=== PATIENT | male | born 1970 | race Caucasian/White ===

== ENCOUNTER 2016-03-17 18:26 | Observation (INO) | payer SELFPAY ==
[2016-03-17 18:41] VITALS: BMI 25.7
[2016-03-17 19:06] LABS: ALL NEG? NO
[2016-03-17 19:15] LABS: MDMA* NEG (NEGATIVE); METHAMPHETAMINES NEG (NEGATIVE); OXYCODONE NEG (NEGATIVE)
[2016-03-17 19:27] LABS: AUTOMATED BASOPHIL 0.8 % (0-2); AUTOMATED LYMPH 28.9 % (17-44); AUTOMATED MONOCYTE 7.2 % (3-10); AUTOMATED NEUTROPHIL 61.1 % (45-76)
[2016-03-17 19:30] LABS: LEUKOCYTES/URINE NEG (NEGATIVE); NITRITE/URINE NEG (NEGATIVE); URINE OCCULT BLOOD NEG (NEG/TRACE)
[2016-03-17 19:35] LABS: BLOOD UREA NITROGEN 8 MG/DL (9-20); CALC CORRECTED 9.5 MG/DL (8.4-10.2); CALCIUM 9.4 MG/DL (8.4-10.2); CALCULATED OSMOLALITY 275 MOs/Kg (270-290); CHLORIDE 108 mEq/L (98-107); ETOH-MGDL < 10 mg/dL; GLUCOSE 96 mg/dL (70-99); SODIUM LEVEL 144 mEq/L (137-146); TOTAL PROTEIN 7.5 G/DL (6.3-8.2)
[2016-03-17] MEDS ORDERED: KETOROLAC TROMETHAMINE 60 MG/2 ML SDV IM ONE ×2 (22:14→22:25)
[2016-03-17] MEDS ORDERED: ACETAMINOPHEN 325 MG/TAB TABLET PO PRN (22:16)
[2016-03-17] MEDS ORDERED: ONDANSETRON HCL 4 MG ODT TAB PO PRN (22:16)
[2016-03-17] MEDS ORDERED: LORAZEPAM 1 MG TAB PO PRN (22:16)
[2016-03-17] MEDS ORDERED: Docusate Sodium 100 MG CAP PO PRN (22:16)
[2016-03-17] MEDS ORDERED: TEMAZEPAM 15 MG CAP PO PRN (22:16)
[2016-03-17] MEDS ORDERED: MAGNESIUM HYDROXIDE 30 ML BOTTLE PO PRN (22:16)
--- NOTE | 2016-03-17 22:16 | EDPRACDOC ---
- General Information Chief Complaint: Psychiatric Illness Stated Complaint: PSYCH SI Time Seen by Provider: 03/17/16 22:08 Mode of Arrival: Law Enforcement Home Medications: Home Medications Unk Blood Pressure 0 mg PO .SEE COMMENTS 03/17/16 Unk Diazepam 0 mg PO .SEE COMMENTS 03/17/16 Unk Oxycodone 0 mg PO .SEE COMMENTS 03/17/16 Unk Prozac 0 mg PO .SEE COMMENTS 03/17/16 Unk Seroquel 0 mg PO .SEE COMMENTS 03/17/16 Unk Thyroid 0 mg PO .SEE COMMENTS 03/17/16 Allergies/Adverse Reactions: Allergies Allergy/AdvReac Type Severity Reaction Status Date / Time ketorolac [From Toradol] Allergy Severe See Verified 03/17/16 22:39 Comments gabapentin [From Neurontin] Allergy See Verified 03/17/16 22:18 Comments tramadol Allergy See Verified 03/17/16 22:16 Comments bentyl Allergy See Uncoded 03/17/16 22:17 Comments SEE COMMENTS Allergy See Uncoded 03/17/16 22:28 Comments - History of Present Illness Onset: 2-3 months HPI: HERE WITH CHRONIC BL LEG PAIN. WAS AT [facility], AND "THEY MESSED UP MY MEDICATIONS." PT WANTS NARCOTICS. SEE TOX SCREEN. TAKES BC POWDERS WITHOUT RELIEF. OBTAINED A RIDE FROM [facility] TO STAY AT MOTHER'S HOUSE. HE DOES NOT WANT TO LIVE WITH HER. OTHER FRIENDS HAVE BAD HOUSING SITUATIONS SO HE CAME TO ED. PT STATES HE IS HERE FOR PAIN MEDS AND NO PLACE TO SLEEP; PT TAKES BC POWDERS SO NO NSAID ALLERGY. TELLING US TO GET RECORDS FROM OTHER HOSPITALS SO , "WE KNOW WHAT TO GIVE HIM." I EXPLAINED WE WOULD NOT BE TREATING HIS CHRONIC PAIN OR REFILLING MEDS HERE. Reason for Seeking Treatment: Self-referral Expresses: Reports: Suicidal Intent Relevant History: Reports: Depression ED Past Medical History - History Reviewed Yes Nurses notes reviewed and agree except as marked - Patient Medical History Cardiac History: Reports: Hypertension Psychological History: Reports: Depression Surgical History: Reports: Tonsillectomy/Adnoidectomy EDM Review of Systems - Review of Systems ROS Negative Except as Marked: Yes All systems reviewed and were negative except as marked - Physical Exam Constitutional: Alert (Awake), No apparent distress Oriented to: Time, Person, Place Last recorded Vital Signs: Last Vital Signs Temp 98.4 F 03/17/16 18:26 Pulse 102 03/17/16 18:26 Resp 18 03/17/16 18:26 BP 167/96 03/17/16 18:26 Pulse Ox 96 03/17/16 18:26 Oxygen Pulse Oxygen Saturation 96 O2 Device Oxygen Flow Rate Fraction of Inspired Oxygen ( FIO2) - HEENT Head: Normal ( normocephalic) Eye Exam: Normal (PERRL, EOMI, Sclera white) Oropharynx: Normal (Pharynx:Moist without exudate,Gums-no swelling) ENT EAC: Normal TMJ: Normal Nose: No Symptoms Reported (septum midline) Neck: Normal (FROM, trachea at midline) - Respiratory/Cardiovascular Respiratory: Normal - CTA (BBS clear to auscultation without adventitious sounds ) Cardiovascular: Normal (RRR without murmur, gallop or rub) - GI Auscultation: Normal (NABS) Palpation: Normal (Soft,No rebound or guarding, non distended) Tenderness: Non tender Christy's Sign: Negative - Musculoskeletal Back: Normal (Non-Tender) Extremities: Normal (Normal tone, Pulses 2+ No cyanosis or edema, FROM) - Integumentary Skin: Normal, Warm, Dry Lymphatics: Normal (no adenopathy) - Neurologic Memory Impaired: Normal Motor Function: Normal (Normal tone, Pulses 2+ No cyanosis or edema, FROM) Cranial Nerve: Normal (CN II-X11 intact sensation, strength 5/5) Cerebellar: Normal Mood Description: Normal Perception: Normal - Results 03/17/16 18:47 03/17/16 18:47 WBC 7.2 xk/uL (3.8-10.8) 03/17/16 18:47 RBC 4.63 xM/uL (4.70-6.10) L 03/17/16 18:47 Hgb 15.0 g/dL (14.0-18.0) 03/17/16 18:47 Hct 43.9 % (42-52) 03/17/16 18:47 MCV 95 fL (80-94) H 03/17/16 18:47 MCH 32.3 pg (27-32) H 03/17/16 18:47 MCHC 34.1 g/dl (33-36) 03/17/16 18:47 RDW 13.7 % (11.5-14.5) 03/17/16 18:47 Plt Count 143 xk/uL (130-400) 03/17/16 18:47 MPV 9.0 fL (7.4-10.4) 03/17/16 18:47 Neut % (Auto) 61.1 % (45-76) 03/17/16 18:47 Lymph % (Auto) 28.9 % (17-44) 03/17/16 18:47 Sutter % (Auto) 7.2 % (3-10) 03/17/16 18:47 Eos % (Auto) 2.0 % (0-5) 03/17/16 18:47 Baso % (Auto) 0.8 % (0-2) 03/17/16 18:47 Absolute Neuts (auto) 4.39 xk/uL (1.7-8.2) 03/17/16 18:47 Absolute Lymphs (auto) 2.02 xk/uL (0.65-4.75) 03/17/16 18:47 Sodium 144 mEq/L (137-146) 03/17/16 18:47 Potassium 4.0 mEq/L (3.5-5.1) 03/17/16 18:47 Chloride 108 mEq/L (98-107) H 03/17/16 18:47 Carbon Dioxide 25 mMOL/L (22-33) 03/17/16 18:47 Anion Gap 15 mEq/L (8-16) 03/17/16 18:47 BUN 8 MG/DL (9-20) L 03/17/16 18:47 Creatinine 0.90 MG/DL (0.66-1.25) 03/17/16 18:47 Estimated GFR (MDRD) > 60 mL/min (>=60) 03/17/16 18:47 Glucose 96 mg/dL (70-99) 03/17/16 18:47 Calculated Osmolality 275 MOs/Kg (270-290) 03/17/16 18:47 Calcium 9.4 MG/DL (8.4-10.2) 03/17/16 18:47 Corrected Calcium 9.5 MG/DL (8.4-10.2) 03/17/16 18:47 Total Bilirubin 0.5 MG/DL (0.2-1.3) 03/17/16 18:47 AST 44 IU/L (17-59) 03/17/16 18:47 ALT 76 IU/L (21-72) H 03/17/16 18:47 Alkaline Phosphatase 97 IU/L (38-126) 03/17/16 18:47 Total Protein 7.5 G/DL (6.3-8.2) 03/17/16 18:47 Albumin 3.9 G/DL (3.5-5.0) 03/17/16 18:47 Urine Color Pale yellow 03/17/16 18:47 Urine Clarity Clear 03/17/16 18:47 Urine pH 8.0 (5.0-8.0) 03/17/16 18:47 Ur Specific Baltic 1.005 (1.003-1.035) 03/17/16 18:47 Urine Protein Neg (NEG/TRACE) 03/17/16 18:47 Urine Glucose (UA) Neg (NEGATIVE) 03/17/16 18:47 Urine Ketones Neg (NEGATIVE) 03/17/16 18:47 Urine Occult Blood Neg (NEG/TRACE) 03/17/16 18:47 Urine Nitrite Neg (NEGATIVE) 03/17/16 18:47 Urine Bilirubin Neg (NEGATIVE) 03/17/16 18:47 Urine Urobilinogen <2.0 MG/DL (0-1) 03/17/16 18:47 Ur Leukocyte Esterase Neg (NEGATIVE) 03/17/16 18:47 Urine Opiates Screen *positive* (NEGATIVE) H 03/17/16 18:47 Ur Oxycodone Screen Neg (NEGATIVE) 03/17/16 18:47 Urine Methadone Screen Neg (NEGATIVE) 03/17/16 18:47 Ur Barbiturates Screen Neg (NEGATIVE) 03/17/16 18:47 Ur Tricyclics Screen Neg (NEGATIVE) 03/17/16 18:47 Ur Phencyclidine Scrn Neg (NEGATIVE) 03/17/16 18:47 Ur Amphetamines Screen Neg (NEGATIVE) 03/17/16 18:47 U Methamphetamines Scrn Neg (NEGATIVE) 03/17/16 18:47 Urine MDMA Screen Neg (NEGATIVE) 03/17/16 18:47 U Benzodiazepines Scrn *positive* (NEGATIVE) H 03/17/16 18:47 Urine Cocaine Screen Neg (NEGATIVE) 03/17/16 18:47 Ur THC Screen Neg (NEGATIVE) 03/17/16 18:47 Plasma/Serum Ethyl Alc % (<0.01) 03/17/16 18:47 Lab Results 03/17/16 03/17/16 03/17/16 18:47 18:47 18:47 WBC 7.2 RBC 4.63 L Hgb 15.0 Hct 43.9 MCV 95 H MCH 32.3 H MCHC 34.1 RDW 13.7 Plt Count 143 MPV 9.0 Neut % (Auto) 61.1 Lymph % (Auto) 28.9 Sutter % (Auto) 7.2 Eos % (Auto) 2.0 Baso % (Auto) 0.8 Absolute Neuts (auto) 4.39 Absolute Lymphs (auto) 2.02 Sodium 144 Potassium 4.0 Chloride 108 H Carbon Dioxide 25 Anion Gap 15 BUN 8 L Creatinine 0.90 Estimated GFR (MDRD) > 60 Glucose 96 Calculated Osmolality 275 Calcium 9.4 Corrected Calcium 9.5 Total Bilirubin 0.5 AST 44 ALT 76 H Alkaline Phosphatase 97 Total Protein 7.5 Albumin 3.9 Urine Color Urine Clarity Urine pH Ur Specific [place] Urine Protein Urine Glucose (UA) Urine Ketones Urine Occult Blood Urine Nitrite Urine Bilirubin Urine Urobilinogen Ur Leukocyte Esterase Urine Opiates Screen *positive* H Ur Oxycodone Screen Neg Urine Methadone Screen Neg Ur Barbiturates Screen Neg Ur Tricyclics Screen Neg Ur Phencyclidine Scrn Neg Ur Amphetamines Screen Neg U Methamphetamines Scrn Neg Urine MDMA Screen Neg U Benzodiazepines Scrn *positive* H Urine Cocaine Screen Neg Ur THC Screen Neg Plasma/Serum Ethyl Alc 03/17/16 18:47 WBC RBC Hgb Hct MCV MCH MCHC RDW Plt Count MPV Neut % (Auto) Lymph % (Auto) Sutter % (Auto) Eos % (Auto) Baso % (Auto) Absolute Neuts (auto) Absolute Lymphs (auto) Sodium Potassium Chloride Carbon Dioxide Anion Gap BUN Creatinine Estimated GFR (MDRD) Glucose Calculated Osmolality Calcium Corrected Calcium Total Bilirubin AST ALT Alkaline Phosphatase Total Protein Albumin Urine Color Pale yellow Urine Clarity Clear Urine pH 8.0 Ur Specific [place] 1.005 Urine Protein Neg Urine Glucose (UA) Neg Urine Ketones Neg Urine Occult Blood Neg Urine Nitrite Neg Urine Bilirubin Neg Urine Urobilinogen <2.0 Ur Leukocyte Esterase Neg Urine Opiates Screen Ur Oxycodone Screen Urine Methadone Screen Ur Barbiturates Screen Ur Tricyclics Screen Ur Phencyclidine Scrn Ur Amphetamines Screen U Methamphetamines Scrn Urine MDMA Screen U Benzodiazepines Scrn Urine Cocaine Screen Ur THC Screen Plasma/Serum Ethyl Alc - Additional Information Additional Information: PT SLEPT IN ROOM 1 ALL NIGHT. NO REQUEST FOR PAIN MEDS. SAW PT. - Departure Yes I personally saw and evaluated the patient. Disposition: Admit to Condition: Good Final Diagnosis: OPIATE DEPENDENCE, CHRONIC PAIN
[2016-03-17] MEDS ORDERED: NICOTINE 14 MG PATCH TOP SCH (23:00)
--- NOTE | 2016-03-18 08:36 | EDTUNOTE ---
- SOAP Note SOAP Note: 03/18/16 0825 Day 2 S: 46 y.o. M presented to ED for chronic leg pain, SI without plan. Pt recently released from rehab of opiates. Pt denies c/o this morning. O: Vital Signs: Temp:98.4 F HR: 71 BP: 142/89 RR: 18 Pox: 94%. Resting comfortably CTA RRR A: Opiate dependance Chronic pain P: Continue meds as directed for further stabilization.
--- NOTE | 2016-03-18 09:27 | TUDEPART ---
Time Seen By Provider: 09:21 Discussion of OBS Stay: 03/18/16824 Day 2 S: 46 y.o. M presented to ED for chronic leg pain, SI without plan. Pt recently released from rehab of opiates. Pt denies c/o this morning. O: Vital Signs: Temp:98.4 F HR: 71 BP: 142/89 RR: 18 Pox: 94%. Resting comfortably CTA RRR A: Opiate dependance Chronic pain P: Continue meds as directed for further stabilization. Disposition: Home Condition: Good Instructions: Chronic Pain (GEN), Substance Abuse Education/Counseling Given To: Patient Education/Counseling Given Regarding: Diagnosis, Treatment Follow-up / Referrals: None,No Provider [Family Provider] - One Week Junito Gutierrez II, MD [Staff Physician] - Listed Time Prescriptions: Trazodone HCl 100 mg PO QHS #7 tab Fluoxetine HCl [Prozac] 40 mg PO DAILY #7 cap Follow-up/Additional Instructions: Follow up [facility] for further evaluation of psych issues. - Physical Exam Constitutional: Alert (Awake), No apparent distress Oriented to: Time, Person, Place Last recorded Vital Signs: Last Vital Signs Temp 98.4 F 03/17/16 18:26 Pulse 71 03/18/16 05:56 Resp 18 03/18/16 05:56 BP 142/89 03/18/16 05:56 Pulse Ox 94 03/18/16 05:56 Oxygen Pulse Oxygen Saturation 94 O2 Device Room Air Oxygen Flow Rate Fraction of Inspired Oxygen ( FIO2) - HEENT Head: Normal ( normocephalic) Eye Exam: Normal (PERRL, EOMI, Sclera white) Oropharynx: Normal (Pharynx:Moist without exudate,Gums-no swelling) ENT EAC: Normal TMJ: Normal Nose: No Symptoms Reported (septum midline) - Respiratory/Cardiovascular Respiratory: Normal - CTA (BBS clear to auscultation without adventitious sounds ) Cardiovascular: Normal (RRR without murmur, gallop or rub) - GI Auscultation: Normal (NABS) Palpation: Normal (Soft,No rebound or guarding, non distended) Tenderness: Non tender Christy's Sign: Negative - Musculoskeletal Back: Normal (Non-Tender) Extremities: Normal (Normal tone, Pulses 2+ No cyanosis or edema, FROM) - Integumentary Skin: Normal, Warm, Dry Lymphatics: Normal (no adenopathy) - Neurologic Memory Impaired: Normal Motor Function: Normal (Normal tone, Pulses 2+ No cyanosis or edema, FROM) Cranial Nerve: Normal (CN II-X11 intact sensation, strength 5/5) Cerebellar: Normal Mood Description: Normal Perception: Normal
[2016-03-18 10:01] VITALS: PULSE 82; TEMP 97.7
[2016-03-18 10:51] VITALS: BP 158/72
== END 2016-03-18 10:45 | disposition home or self-care (01) ==
LOC: ED 18:26 → EDINP 22:16
PROVIDERS: ADMIT Family Medicine; ATTEND Family Medicine
DX: F11.20 Opioid dependence, uncomplicated (principal); G89.29 Other chronic pain; I10 Essential (primary) hypertension; F32.9 Major depressive disorder, single episode, unspecified; Z79.899 Other long term (current) drug therapy
CPT/HCPCS: 36415; 80053; 80307; 81001; 85025; 86592; 99285; G0378; J3490; J1885